=== PATIENT | male | born 2005 | race Caucasian/White ===

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

== ENCOUNTER 2023-02-06 09:28 | Outpatient (CLI) | payer OTHER, SELFPAY ==
--- NOTE | ~2023-02-06 | XR_ITS ---
EXAMINATION: XR chest 2V DATE: 02/06/2023 09:50 INDICATION: Chest pain TECHNIQUE: PA and lateral views of the chest are obtained. COMPARISON: 05/10/2021 FINDINGS: The lungs are free of acute opacities. No pleural effusion or pneumothorax. The cardiomedia stinal silhouette is normal. The visualized bones and soft tissues are unremarkable. IMPRESSION: 1. No acute cardiopulmonary abnormality. Reviewed, dictated and finalized at location B. [employer]
== END 2023-02-06 09:29 | disposition home or self-care (01) ==
LOC: ANHIMG 09:39
PROVIDERS: PCP Pediatrics; Visit Provider Pediatrics
DX: R07.9 Chest pain, unspecified (principal)
CPT/HCPCS: 71046